=== PATIENT | female | born 1990 | race Caucasian/White ===

== ENCOUNTER 2023-12-28 02:48 | Emergency (ER) | payer SELFPAY ==
--- NOTE | 2023-12-28 03:16 | ED Physician Documentation ---
PD HPI SYNCOPE - Stated complaint Stated Complaint: SYNCOPE - Chief complaint Chief Complaint: Neuro - History obtained from History obtained from: Patient - History of Present Illness Witnessed: Witnessed Timing - onset: Today Duration: Seconds Preceding symptoms: Headache, Light headed, Generalized weakness Associated symptoms: Headache, Other Contributing factors: Just stood up Similar symptoms before: Has not had sx before Recently seen: Not recently seen - Additional information Additional information: 33-year-old Kiya Moe has had a headache for the past 3 days and she has had some nausea as well she has not had any vomiting. The patient has 3 children ages 3 6 and 9 and she and her live in an and travel. They have been visiting with friends and they had stayed up quite late. Patient indicates that she did not feel well got up to walk into the living room and "passed out "her tended to her and then put her into the truck to bring her here to the emergency department. She had a second episode of passing out in the truck and when she passed out she was not responsive. She had some expressive aphasia when she awoke and this has persisted to her visit to the emergency department. She is now having the expressive aphasia in episodes. Review of Systems Constitutional: denies: Fever, Chills, Myalgias Eyes: denies: Decreased vision Ears: denies: Ear pain Nose: denies: Rhinorrhea / runny nose, Congestion Throat: denies: Sore throat Cardiac: denies: Chest pain / pressure, Palpitations Respiratory: denies: Dyspnea, Cough GI: reports: Nausea. denies: Abdominal Pain, Vomiting, Constipation, Diarrhea : denies: Dysuria, Frequency Skin: denies: Rash Musculoskeletal: denies: Neck pain, Back pain, Extremity pain Neurologic: reports: Difficulty speaking, Syncope, Headache. denies: Generalized weakness, Focal weakness, Numbness, Seizure, Confused, Altered mental status, Head injury PD PAST MEDICAL HISTORY - Past Medical History Past Medical History: No - Past Surgical History Past Surgical History: No - Present Medications Home Medications: Ambulatory Orders Medication Instructions Recorded Confirmed No Known Home Medications 12/28/23 12/28/23 - Allergies Allergies/Adverse Reactions: Allergies Allergy/AdvReac Type Severity Reaction Status Date / Time clindamycin Allergy Severe Rash Verified 12/28/23 03:05 - Social History Does the pt smoke?: No Smoking Status: Never smoker PD ED PE NORMAL - Vitals Vital signs reviewed: Yes (Hypertensive mild) - General General: Alert and oriented X 3, No acute distress, Well developed/nourished - HEENT HEENT: Atraumatic, PERRL, EOMI - Neck Neck: Supple, no meningeal sign, No bony TTP - Cardiac Cardiac: RRR, No murmur - Respiratory Respiratory: No respiratory distress, Clear bilaterally - Abdomen Abdomen: Soft, Non tender - Back Back: No CVA TTP, No spinal TTP - Derm Derm: Normal color, Warm and dry, No rash - Extremities Extremities: No deformity, No edema - Neuro Neuro: Alert and oriented X 3, clock and watch hands painter 2-12 intact, No motor deficit, No sensory deficit, Normal speech Eye Opening: Spontaneous Motor: Obeys Commands Verbal: Oriented GCS Score: 15 - Psych Psych: Normal mood, Normal affect Results - Vitals Vitals: Vital Signs - 24 hr 12/28/23 12/28/23 12/28/23 03:01 03:15 03:40 Temperature 37.2 C 36.5 C Heart Rate 94 80 93 Respiratory 24 16 16 Rate Blood Pressure 145/90 H 133/98 H 122/91 H O2 Saturation 100 100 97 12/28/23 12/28/23 12/28/23 04:05 04:30 05:00 Temperature Heart Rate 103 H 87 78 Respiratory 18 16 16 Rate Blood Pressure 105/68 119/73 110/69 O2 Saturation 99 97 98 Oxygen O2 Source Room air - EKG (time done) 0257 EKG releavant findings:: EKG personally interpreted by author of this note. Relevant findings are: Rate: Rate (enter#) (87) Rhythm: NSR Ischemia: Normal ST segments Compare to prior EKG: Old EKG unavailable Computer interpretation: Agree with computer - Labs Labs: Laboratory Tests 12/28/23 12/28/23 12/28/23 03:00 03:00 03:00 WBC 11.0 H RBC 4.72 Hgb 13.7 Hct 42.3 MCV 89.6 MCH 29.0 MCHC 32.4 RDW 13.2 Plt Count 281 MPV 10.5 Neut # (Auto) 5.5 Lymph # (Auto) 4.4 H [place] # (Auto) 0.9 Eos # (Auto) 0.2 Baso # (Auto) 0.0 Absolute Nucleated RBC 0.00 Nucleated RBC % 0.0 Sodium 139 Potassium 3.3 L Chloride 104 Carbon Dioxide 26 Anion Gap 9.0 BUN 19 Creatinine 0.9 Estimated GFR (MDRD) 73 L Glucose 109 H Calcium 9.6 Total Bilirubin 0.4 AST 17 ALT 16 Alkaline Phosphatase 61 Troponin I High Sens 2.3 Total Protein 8.0 Albumin 5.1 Globulin 2.9 Albumin/Globulin Ratio 1.8 Lipase 39 Urine Color Urine Clarity Urine pH Ur Specific [place] Urine Protein Urine Glucose (UA) Urine Ketones Urine Occult Blood Urine Nitrite Urine Bilirubin Urine Urobilinogen Ur Leukocyte Esterase Ur Microscopic Review Urine Culture Comments Urine HCG, Qual Urine Opiates Screen Ur Buprenorphine Scrn Ur Oxycodone Screen Urine Methadone Screen Ur Barbiturates Screen Ur Tricyclics Screen Ur Phencyclidine Scrn Ur Amphetamine Screen U Methamphetamines Scrn U Benzodiazepines Scrn Urine Cocaine Screen U Cannabinoids Screen Ur Drug Screen Comment Ethyl Alcohol < 10.0 12/28/23 03:34 WBC RBC Hgb Hct MCV MCH MCHC RDW Plt Count MPV Neut # (Auto) Lymph # (Auto) [place] # (Auto) Eos # (Auto) Baso # (Auto) Absolute Nucleated RBC Nucleated RBC % Sodium Potassium Chloride Carbon Dioxide Anion Gap BUN Creatinine Estimated GFR (MDRD) Glucose Calcium Total Bilirubin AST ALT Alkaline Phosphatase Troponin I High Sens Total Protein Albumin Globulin Albumin/Globulin Ratio Lipase Urine Color COLORLESS Urine Clarity CLEAR Urine pH 6.0 Ur Specific [place] <=1.005 Urine Protein NEGATIVE Urine Glucose (UA) NEGATIVE Urine Ketones NEGATIVE Urine Occult Blood NEGATIVE Urine Nitrite NEGATIVE Urine Bilirubin NEGATIVE Urine Urobilinogen 0.2 (NORMAL) Ur Leukocyte Esterase NEGATIVE Ur Microscopic Review NOT INDICATED Urine Culture Comments NOT INDICATED Urine HCG, Qual NEGATIVE Urine Opiates Screen NEGATIVE Ur Buprenorphine Scrn NEGATIVE Ur Oxycodone Screen NEGATIVE Urine Methadone Screen NEGATIVE Ur Barbiturates Screen NEGATIVE Ur Tricyclics Screen NEGATIVE Ur Phencyclidine Scrn NEGATIVE Ur Amphetamine Screen NEGATIVE U Methamphetamines Scrn NEGATIVE U Benzodiazepines Scrn NEGATIVE Urine Cocaine Screen NEGATIVE U Cannabinoids Screen NEGATIVE Ur Drug Screen Comment CUTOFF CONC BELOW: Ethyl Alcohol - Rads (name of study) CT head without Relevant Findings:: Prelim report reviewed (Impression: 1. No acute CT evidence of acute intracranial pathology.), EMP independent interpretation of test Procedures - IVC sono (time) 0310 Bedside IVC sono: IVC measures (cm) (1.91), Euvolemia PD Medical Decision Making - ED course Complexity details: reviewed results, re-evaluated patient, considered differential, d/w patient, d/w family Reviewed Lab Results: We reviewed a complete blood count showing a elevated white blood cell count of 11,000 with normal hemoglobin hematocrit and platelets chemistries showed a potassium depressed at 3.3 with normal kidney and liver function high- sensitivity troponin was normal at 2.3 a urinalysis is clear with a specific gravity 1.005 and is negative for toxicology report shows ethyl alcohol less than 10 and is negative for drugs of abuse. I interpreted these laboratory studies to indicate a likely benign process. She does have mild hypokalemia and she is given a dose of potassium here. ED course: 33-year-old female presents to the emergency department after a syncopal episode that resulted in episodic expressive aphasia. The patient simply had difficulty trying to talk her words out. She subsequently had normal speech and then during an episode have difficulty speaking again. The patient has had headache and nausea throughout the day and a concern for the possibility of complicated migraine is entertained and the patient is treated with a migraine cocktail consisting of Compazine 10 mg Benadryl 25 mg Toradol 30 mg dexamethasone 10 mg and a liter of saline. The patient took a short nap felt entirely normal on awakening. I interpreted this to indicate the patient likely had a migraine headache. Departure - Departure Disposition: 01 Home, Self Care Clinical Impression: Complicated migraine Condition: Stable Instructions: ED Headache Migraine Follow-Up: [facility] [Provider Group] Comments: Kiya, today it looks like you had a fainting episode and some difficulty speaking which looks like this was related to a complicated migraine. You were treated with a migraine cocktail with improvement in your symptoms. The medications we gave you for this were, Compazine, Benadryl, Toradol, dexamethasone and saline. The expectation following this treatment is resolution of your headache and no difficulty with speaking or fainting.I have given you a number of a clinic [place]
[2023-12-28] MEDS: DEXAMETHASONE 10 MG/ML VIAL IVP STA (03:19)
[2023-12-28] MEDS: KETOROLAC 30 MG/ML VIAL IVP STA (03:19)
[2023-12-28 03:20] LABS: BASOPHILS % (AUTO) 0.4 %; EOSINOPHILS # (AUTO) 0.2 10^3/uL (0.0-0.7); EOSINOPHILS % (AUTO) 1.4 %; HCT - HEMATOCRIT 42.3 % (37.0-47.0); HGB - HEMOGLOBIN 13.7 g/dL (12.0-16.0); LYMPHOCYTES # (AUTO) 4.4 10^3/uL (1.5-3.5); LYMPHOCYTES % (AUTO) 40.2 %; MEAN CORPUSCULAR HGB CONC 32.4 g/dL (32.0-36.0); MEAN CORPUSCULAR VOLUME 89.6 fL (81.0-99.0); MEAN PLATELET VOLUME 10.5 fL (7.9-10.8); MONOCYTES # (AUTO) 0.9 10^3/uL (0.0-1.0); MONOCYTES % (AUTO) 7.9 %; NEUTROPHILS # (AUTO) 5.5 10^3/uL (1.5-6.6); NEUTROPHILS % (AUTO) 49.7 %; PLT - PLATELET COUNT 281 10^3/uL (130-450); RED BLOOD COUNT 4.72 10^6/uL (4.20-5.40); RED CELL DISTRIBUTION WIDTH 13.2 % (12.0-15.0)
[2023-12-28] MEDS: PROCHLORPERAZINE 10 MG/2 ML VIAL IVP STA (03:20)
[2023-12-28] MEDS: diphenhydrAMINE INJ 50 MG/ML VIAL IVP STA (03:20)
[2023-12-28] MEDS: SODIUM CHLORIDE 0.9% 1,000 ML IV STA (03:20)
[2023-12-28 03:37] LABS: ALBUMIN 5.1 g/dL (3.2-5.5); ALBUMIN/GLOBULIN RATIO 1.8 (1.0-2.2); ALKALINE PHOSPHATASE 61 IU/L (42-121); ALT ALANINE AMINOTRANSFERASE 16 IU/L (10-60); AST ASPARTATE AMINOTRANSFERASE 17 IU/L (10-42); BILIRUBIN,TOTAL 0.4 mg/dL (0.2-1.0); BUN - BLOOD UREA NITROGEN 19 mg/dL (6-20); CALCIUM 9.6 mg/dL (8.5-10.3); CARBON DIOXIDE - CO2 26 mmol/L (21-32); CHLORIDE 104 mmol/L (101-111); CREATININE 0.9 mg/dL (0.6-1.3); ETOH - ETHANOL < 10.0 mg/dL; GFR - MDRD 73 (>89); GLUCOSE 109 mg/dL (74-104); LIPASE 39 U/L (11-82); POTASSIUM 3.3 mmol/L (3.5-4.5); SODIUM 139 mmol/L (135-145)
[2023-12-28 03:50] LABS: BILIRUBIN,URINE NEGATIVE (NEGATIVE); GLUCOSE, URINE (UA) NEGATIVE (NEGATIVE); KETONES,URINE (UA) NEGATIVE (NEGATIVE); LEUKOCYTE ESTERASE, URINE NEGATIVE (NEGATIVE); NITRITE,URINE NEGATIVE (NEGATIVE); OCCULT BLOOD,URINE NEGATIVE (NEGATIVE); PROTEIN,URINE NEGATIVE (NEGATIVE); UROBILINOGEN,URINE 0.2 (NORMAL) E.U./dL (NORMAL)
[2023-12-28 03:52] LABS: CLARITY,URINE CLEAR (CLEAR); HCG UR QUAL NEGATIVE
[2023-12-28 04:10] LABS: BARBITURATE SCREEN,UR NEGATIVE (NEGATIVE); BENZODIAZEPINES SCREEN, URINE NEGATIVE (NEGATIVE); BUPRENORPHINE SCREEN, URINE NEGATIVE (NEGATIVE); METHADONE SCREEN, URINE NEGATIVE (NEGATIVE); OXYCODONE SCREEN, URINE NEGATIVE (NEGATIVE); TRICYCLIC ANTIDEPRESSANT,URINE NEGATIVE (NEGATIVE)
[2023-12-28 04:11] LABS: AMPHETAMINE SCREEN,URINE NEGATIVE (NEGATIVE); COCAINE SCREEN URINE NEGATIVE (NEGATIVE); METHAMPHETAMINES SCREEN, URINE NEGATIVE (NEGATIVE); OPIATE SCREEN, URINE NEGATIVE (NEGATIVE); THC CANNABINOID SCREEN, URINE NEGATIVE (NEGATIVE)
[2023-12-28 05:15] VITALS: BP 110/69; O2SAT 98
--- NOTE | 2023-12-28 07:07 | CT Report ---
PROCEDURE: Head WO INDICATIONS: headache, aphasia TECHNIQUE: Noncontrast 4.5 mm thick angled axial sections acquired from the foramen magnum to the vertex. For r adiation dose reduction, the following was used: automated exposure control, adjustment of mA and/or kV according to patient size. COMPARISON: None. FINDINGS: Image quality: Excellent. CSF spaces: Basal cisterns are patent. No extra-axial fluid collections. Ventricles are normal in size and shape. Brain: No midline shift. No intracranial masses or hemorrhage. Flanagan-white matter interface is norm al. Incidental note made of deposition in the ganglia bilaterally. Skull and face: Calvarium and visualized facial bones are intact, without suspicious lesions. Sinuses: Visualized sinuses and mastoids are clear. IMPRESSION: No acute intracranial pathology. Comment: If clinically suspect stroke, brain MRI may be helpful. Findings are concordant with preliminary interpretation provided by [facility]. Reviewed by: Ihsan Michel MD on 12/28/2023 7:05 AM [facility] Approved by: Ihsan Michel MD on 12/28/2023 7:05 AM PST Station ID: [id number]
== END 2023-12-28 05:26 | disposition home or self-care (01) ==
LOC: ED 02:48
DX: G43.109 Migraine with aura, not intractable, without status migrainosus (principal); E87.6 Hypokalemia
CPT/HCPCS: 36415; 70450; 80053; 80306; 81003; 81025; 82077; 83690; 84484; 85025; 93005; 96374; 96375; 99284; J1200; 81001; 87086